=== PATIENT | female | born 1995 | race African-American/Black ===

== ENCOUNTER 2017-10-19 08:49 | Inpatient (IN) | payer OTHER ==
[2017-10-19] VITALS (7 sets, daily range): BP systolic 102–132; BP diastolic 41–63; PULSE 71–80; RESP 16–18; TEMP 97.5–98.5
[~2017-10-19] VITALS: Ht 162.6 cm; Wt 102.0 kg
[~2017-10-19 08:49] MED LIST: FERRTAB2 PO; Z.0.NO CURRENT MEDS
[2017-10-19] MEDS: LACTATED RINGER'S 1000 ML INJ 1,000 ML IV SCH ×3 (08:57→23:08)
[2017-10-19] MEDS ORDERED: LACTATED RINGER'S 1000 ML INJ 1,000 ML IV PRN (08:57)
[2017-10-19] MEDS ORDERED: SODIUM CHLORID 0.9% 500 ML INJ 500 ML IV PRN (09:00)
[2017-10-19] MEDS ORDERED: LIDOCAINE HCL 1% 50 ML VIAL I-DERMAL PRN (09:00)
[2017-10-19] MEDS ORDERED: MINERAL OIL 10 ML VIAL TOPICAL PRN (09:00)
[2017-10-19] MEDS ORDERED: OXYTOCIN 30 UNITS-500ML PREMIX 500 ML IV ONE (09:00)
[2017-10-19] MEDS ORDERED: ONDANSETRON HCL 4 MG/2 ML VIAL IV PUSH PRN (09:00)
[2017-10-19] MEDS ORDERED: LIDOCAINE HCL 1% 50 ML VIAL INFIL PRN (09:00)
[2017-10-19] MEDS ORDERED: CITRIC ACID-SODIUM CITRATE LIQ 30 ML UDC PO SCH (09:00)
[2017-10-19] MEDS ORDERED: SODIUM CHLOR 0.9% 1000 ML INJ 1,000 ML IV PRN (09:17)
--- NOTE | 2017-10-19 09:21 | HHI.HP ---
HPI Chief Complaint Scheduled Induction for Post-Dates Date Seen: Oct 19, 2017 Travel History International Travel<30 Days: No Contact w/Intl Traveler<30Days: No History of Present Illness HPI Ms. Novoa is a 21 y/o presenting at 41/2 weeks gestation for her scheduled induction. Per chart review, patient has had late care with the [facility]. She established in 09/08 and was found to be anemic and was then started on oral iron. Patient reported she had hepatitis C at that time, but labs showed she was currently antibody negative. Otherwise she reports no issues in . She endorses good movement and denies any vaginal bleeding, discharge, dysuria, or loss of fluid. She has no other complaints and denies any fevers, chills, SOB, chest pain, NVD, ABD pain or calf tenderness. Weeks Gestation: 41 Para: 1 : 2 History Past Medical History Narrative Medical Anemia Hepatitis C per patient, negative per labs Obstetric History Obstetric History Uncomplicated at full term Past Surgical History Surgical History: No Previous Surgery Family History Family History: Negative Social History Alcohol Use: No Tobacco Use: No Substance Abuse: No Allergies-Medications (Allergen,Severity, Reaction): Coded Allergies: No Known Allergies (Unverified Adverse Reaction, Unknown, 09/16/17) Home Meds Active Scripts Multi-Vit/Iron-Folic [id number] C (Ferralet) 90-1-0.012-120 mg Tab, 1 CAPLET PO BID for 30 Days, #60 CAPLET 2 Refills Prov:Deana Pacheco CNM [facility] 09/01/17 Multi-Vit/Iron-Folic [id number]-Sly C (Ferralet) 90-1-0.012-120 mg Tab, 1 CAPLET PO BID for 30 Days, #60 CAPLET 2 Refills Prov:Deana Pacheco CNM [facility] 08/29/17 Discontinued Reported Medications Miscellaneous (No Current Meds) Misc 11/25/12 Review of Systems Except as stated in HPI: all other systems reviewed are Neg (Per HPI) Physical Exam Narrative GENERAL: Well-nourished, well-developed patient. SKIN: Warm and dry. HEAD: Normocephalic and atraumatic. EYES: No scleral icterus. No injection or drainage. ENT: No nasal drainage noted. Mucous membranes pink. Airway patent. NECK: Supple, trachea midline. No JVD. CARDIOVASCULAR: Regular rate and rhythm without murmurs, gallops, or rubs. RESPIRATORY: Breath sounds equal bilaterally. No accessory muscle use. ABDOMEN/GI: Abdomen soft, non-tender, bowel sounds present, no rebound, no guarding Gravid to 41 weeks size GENITOURINARY: External Genitalia: intact and normal in appearance Cervix: Posterior Dilatation: 1-2cm Effacement: Thick Station: -3 Presentation: Vertex Membranes: Intact Uterine Contractions: None FHT's: Category: 1 Baseline: 120s Reactive: Positive Variability: Moderate Decels: None EXTREMITIES: No cyanosis or edema. BACK: Nontender without obvious deformity. No CVA tenderness. NEUROLOGICAL: Awake and alert. Motor and sensory grossly within normal limits. Five out of 5 muscle strength in all muscle groups. Normal speech. Caprini VTE Risk Assessment Caprini VTE Risk Assessment: Mod/High Risk (score >= 2) Caprini Risk Assessment Model Point Value = 1 Point Value = 2 Point Value = 3 Point Value = 5 Age 41-60 Minor surgery BMI > 25 kg/m2 Swollen legs Varicose veins or History of unexplained or recurrent spontaneous Oral contraceptives or hormone replacement Sepsis (< 1 month) Serious lung disease, including pneumonia (< 1 month) Abnormal pulmonary function Acute myocardial infarction Congestive heart failure (< 1 month) History of inflammatory bowel disease Medical patient at bed rest Age 61-74 Arthroscopic surgery Major open surgery (> 45 min) Laparoscopic surgery (> 45 min) Malignancy Confined to bed (> 72 hours) Immobilizing plaster cast Central venous access Age >= 75 History of VTE Family history of VTE Factor V Leiden Prothrombin [id number] Lupus anticoagulant Anticardiolipin antibodies Elevated serum homocysteine Heparin-induced thrombocytopenia Other congenital or acquired thrombophilia Stroke (< 1 month) Elective arthroplasty Hip, pelvis, or leg fracture Acute spinal cord injury (< 1 month) Prophylaxis Regimen Total Risk Factor Score Risk Level Prophylaxis Regimen 0-1 Low Early ambulation 2 Moderate Order ONE of the following: *Sequential Compression Device (SCD) *Heparin 5000 units SQ BID 3-4 Higher Order ONE of the following medications: *Heparin 5000 units SQ TID *Enoxaparin/Lovenox 40 mg SQ daily (WT < 150 kg, CrCl > 30 mL/min) *Enoxaparin/Lovenox 30 mg SQ daily (WT < 150 kg, CrCl > 10-29 mL/min) *Enoxaparin/Lovenox 30 mg SQ BID (WT < 150 kg, CrCl > 30 mL/min) AND/OR *Sequential Compression Device (SCD) 5 or more Highest Order ONE of the following medications: *Heparin 5000 units SQ TID (Preferred with Epidurals) *Enoxaparin/Lovenox 40 mg SQ daily (WT < 150 kg, CrCl > 30 mL/min) *Enoxaparin/Lovenox 30 mg SQ daily (WT < 150 kg, CrCl > 10-29 mL/min) *Enoxaparin/Lovenox 30 mg SQ BID (WT < 150 kg, CrCl > 30 mL/min) AND *Sequential Compression Device (SCD) Data Data Vital Signs Reviewed: Yes Orders Orders Admit To Inpatient (10/19/17 ) Code Status (10/19/17 08:57) Vital Signs (Adult) .Per protocol (10/19/17 08:57) Heart (10/19/17 08:57) Amnioinfusion (10/19/17 08:57) Urinary Catheter Management .ONCE (10/19/17 08:57) Lactated Ringer's 1000 Ml Inj (Lr 1000 M (10/19/17 08:57) Lactated Ringer's 1000 Ml Inj (Lr 1000 M (10/19/17 08:57) Sodium Chlorid 0.9% 500 Ml Inj (Ns 500 M (10/19/17 09:00) Sodium Chlor 0.9% 1000 Ml Inj (Ns 1000 M (10/19/17 09:17) Lidocaine 1% Inj (50 Ml) (Xylocaine 1% I (10/19/17 09:00) Citric Acid-Sodium Citrate Liq (Bicitra (10/19/17 09:00) Ondansetron Inj (Zofran Inj) (10/19/17 09:00) Fentanyl Inj (Fentanyl Inj) (10/19/17 09:00) Fentanyl Inj (Fentanyl Inj) (10/19/17 09:00) Complete Blood Count With Diff (10/19/17 08:57) Hold Clot (10/19/17 08:57) Abo/Rh Blood Type (10/19/17 08:57) Urinalysis - C+S If Indicated (10/19/17 08:57) Drug Screen, Random Urine (10/19/17 08:57) Ob/Psych Drug Screen, Urine (10/19/17 08:57) Resp Oxygen Non Rebreathe Mask (10/19/17 ) ^ Epidural / Intrathecal Infus (10/19/17 08:57) Oxytocin 30 Units-500ml Premix (Pitocin (10/19/17 09:00) Lidocaine 1% Inj (50 Ml) (Xylocaine 1% I (10/19/17 09:00) Light Mineral Oil (Muri-Lube Oil) (10/19/17 09:00) Group B Strep Pcr (Rapid) (10/19/17 08:57) Inpatient Certification (10/19/17 ) Specimen To Be Collected PRN (10/19/17 08:57) Specimen To Be Collected PRN (10/19/17 08:57) Group B Strep: Negative Assessment/Plan Problem List: (1) 41 weeks gestation of ICD Codes: Z3A.41 - 41 weeks gestation of Status: Acute Assessment and Plan Ms. Novoa is a 21 y/o at 41/2 weeks gestation presenting for her post- dates induction of labor. 1. IUP at 41 weeks gestation -Continue routine antepartum care -FHT category 1, reassuring -Orders placed for labor admission -Plan to start Cytotec for cervical ripening as cervix is currently closed. -Plan to reassess in 4 hours for possible additional dose vs. labor augmentation with Pitocin. 2. GBS status unknown -Negative per chart review 3. Anemia -Patient to continue with oral iron -Continue to monitor SDW: Dr. Jang Discharge Planning Pending clinical course Lion Page MD R2 Oct 19, 2017 09:21
[2017-10-19 10:29] LABS: AUTOMATED NEUTROPHIL # 5.3 TH/MM3 (1.8-7.7); BASOPHIL % 0.2 % (0.0-2.0); EOSINOPHIL # 0.2 TH/MM3 (0-0.4); EOSINOPHIL % 2.1 % (0.0-4.0); HEMATOCRIT 28.5 % (35.0-46.0); LYMPH % 19.5 % (9.0-44.0); LYMPHOCYTE # 1.5 TH/MM3 (1.0-4.8); MEAN CELL VOLUME 89.1 FL (80.0-100.0); MEAN CORPUSCULAR HEMOGLOBIN 31.2 PG (27.0-34.0); MEAN PLATELET VOLUME 9.3 FL (7.0-11.0); MONO % 8.3 % (0.0-8.0); MONOCYTE # 0.6 TH/MM3 (0-0.9); NEUT % 69.9 % (16.0-70.0); PLATELET COUNT 233 TH/MM3 (150-450); WHITE BLOOD COUNT 7.6 TH/MM3 (4.0-11.0)
[2017-10-19] MEDS ORDERED: MISOPROSTOL 25 MCG TAB PO ONE ×3 (10:30→19:30)
[2017-10-19 10:41] LABS: BACTERIA, URINE FEW /hpf; BILIRUBIN, URINE NEG (NEG); BLOOD, URINE NEG (NEG); GLUCOSE,URINE NEG (NEG); KETONE, URINE NEG (NEG); MUCUS URINE FEW /lpf (OCC); NITRITE,URINE NEG (NEG); PH, URINE 6.5 (5.0-8.5); SQUAMOUS EPITHELIAL CELL URINE 14 /hpf (0-5); URINE COLOR YELLOW (YELLW/STRAW); URINE LEUKOCYTE ESTERASE LARGE (NEG); WHITE BLOOD CELL CLUMPS RARE
[2017-10-19] MEDS: MULTIVITAMIN TAB PO SCH ×2 (10:42→21:17)
--- NOTE | 2017-10-19 15:21 | PD.LABORPN ---
Subjective Subjective Patient seen and examined. No current complaints and resting comfortably sleeping upon entering the room. Endorses good movement with no loss of fluid, bleeding, or dysuria. Objective Vital Signs Vital Signs Date Time Temp Pulse Resp B/P (MAP) Pulse Ox O2 Delivery O2 Flow Rate FiO2 10/19/17 13:07 16 10/19/17 13:05 98.5 80 102/55 (71) 10/19/17 09:05 75 132/41 (71) 10/19/17 09:04 97.5 18 Objective Pelvic Exam: Cervix: Posterior Dilatation: 3/4 Effacement: 60% Station: -2 Presentation: Vertex Membranes:Intact Uterine Contractions: Q5-6m FHT's: Category: 1 Baseline: Reactive: 130s Variability: Moderate Decels: None Weeks Gestation: 41 Assessment/Plan Problem List: (1) 41 weeks gestation of ICD Codes: Z3A.41 - 41 weeks gestation of Status: Acute Assessment and Plan Ms. Novoa is a 21 y/o at 41/2 weeks gestation presenting for her post- dates induction of labor. 1. IUP at 41 weeks gestation -Continue routine antepartum care -FHT category 1, reassuring -Orders placed for labor admission -Cytotec 25mgx1 complete without complications -As patient is still posterior with thickened cervix, Cytotec 25mg reordered x1 2. GBS status unknown -Negative per chart review 3. Anemia -Patient to continue with oral iron -Continue to monitor SDW: Dr. Suhail Page,Lion Escalante MD R2 Oct 19, 2017 15:21
--- NOTE | 2017-10-19 20:26 | PD.LABORPN ---
Subjective Subjective pt. in bed feeling some discomfort. pt. w/ some cervical dilation s/p cytotec 25mcg x 2 doses. +FM, no lof/vb Objective Vital Signs Vital Signs Date Time Temp Pulse Resp B/P (MAP) Pulse Ox O2 Delivery O2 Flow Rate FiO2 10/19/17 20:12 98.3 17 10/19/17 20:12 71 122/63 (82) 10/19/17 16:00 17 10/19/17 13:07 16 10/19/17 13:05 98.5 80 102/55 (71) Objective Pelvic Exam: Dilatation: 4 Effacement: 70 Station: high Presentation: cephalic Membranes:intact Uterine Contractions: 3-5 min FHT's: Category: 1 Reactive: + Variability: moderate Decels: 0 Weeks Gestation: 41 Assessment/Plan Problem List: (1) 41 weeks gestation of ICD Codes: Z3A.41 - 41 weeks gestation of Status: Acute Assessment and Plan pt. progressing well. will give another 25mcg of misoprostol. will continue to follow. Joshua Jang Jr., MD Oct 19, 2017 20:26
[2017-10-20] VITALS (30 sets, daily range): BP systolic 111–145; BP diastolic 60–94; PULSE 60–95; RESP 17–20; TEMP 98.1–98.5; O2SAT 100
[2017-10-20] MEDS ORDERED: fentaNYL 2MCG-BUPIV 0.125% 100 ML EPIDURAL SCH
[2017-10-20] MEDS ORDERED: NO SYSTEM NARCOTICS PRN
[2017-10-20] MEDS ORDERED: DO NOT ADMINISTER ANTICOAGULANTS PRN
[2017-10-20] MEDS ORDERED: fentaNYL 2MCG-BUPIV 0.125% INJ 100 ML ONE (00:07)
--- NOTE | 2017-10-20 00:10 | PD.LABORPN ---
Subjective Subjective pt. in bed. occasional cramping. s/p 3 doses 25mcg cytotec. +FM, no lof/vb. Objective Vital Signs Vital Signs Date Time Temp Pulse Resp B/P (MAP) Pulse Ox O2 Delivery O2 Flow Rate FiO2 10/19/17 20:12 98.3 17 10/19/17 20:12 71 122/63 (82) Objective Pelvic Exam: Dilatation: 4 Effacement: 70 Station: high Presentation: cephalic Membranes: Arom clear fluid Uterine Contractions: 3-5 min FHT's: Category: 1 Reactive: + Variability: mod Decels: none Weeks Gestation: 41 Medical induction of labor?: Yes Artificial rupture of membrane: Yes Artificial ROM date: Oct 20, 2017 Artifical ROM time: 00:09 Assessment/Plan Problem List: (1) 41 weeks gestation of ICD Codes: Z3A.41 - 41 weeks gestation of Status: Acute Assessment and Plan pt. s/p arom w/o diff. will continue to monitor. will reassess in 1 hour, and if no change will begin pitocin. Joshua Jang Jr., MD Oct 20, 2017 00:10
[2017-10-20] MEDS ORDERED: OXYTOCIN 30 UNITS/NS 500ML PREMIX IV PRN (01:00)
[2017-10-20] MEDS ORDERED: ePHEDrine/NS 25 MG/5 ML SYRINGE IV PUSH PRN (01:00)
[2017-10-20] MEDS ORDERED: diphenhydrAMINE HCL 50 MG/ML VIAL IV SCH (02:00)
--- NOTE | 2017-10-20 04:56 | PD.OB.DELI ---
Weeks gestation: 41 Gest age assessed time: 04:54 Pt started active labor?: Yes Medical induction of labor?: Yes Artificial rupture of membrane: Yes Artificial ROM date: Oct 20, 2017 Artifical ROM time: 00:09 Anesthesia: Epidural Episiotomy: None Vaginal Delivery: Normal Presentation: Occiput anterior, Compound Nuchal Cord: x1 Delayed cord clamping (45 sec): Yes Infant: Female Delivery date: Oct 20, 2017 Delivery time: 04:26 One Minute : 8 Five Minute : 9 Weight: pending Placenta: Manual removal Laceration: 1 deg Repair: Vicryl running Estimated blood loss: 600cc Joshua Jang Jr., MD Oct 20, 2017 04:56
[2017-10-20] MEDS ORDERED: ZOLPIDEM TARTRATE 5 MG TAB PO PRN (05:00)
[2017-10-20] MEDS ORDERED: ONDANSETRON ODT 4 MG TAB PO PRN (05:00)
[2017-10-20] MEDS ORDERED: ALUMINUM/MAGNESIUM/SIMETH 30 ML CUP PO PRN (05:00)
[2017-10-20] MEDS ORDERED: WITCH HAZEL 50%/GLYCERIN 12.5% 40 PAD JAR TOPICAL PRN (05:00)
[2017-10-20] MEDS ORDERED: OXYTOCIN 30 UNITS-500ML PREMIX 500 ML IV SCH (05:00)
[2017-10-20] MEDS ORDERED: SODIUM CHLORIDE 0.9% FLUSH 10 ML FLUSH IV FLUSH PRN (05:00)
[2017-10-20] MEDS ORDERED: ACETAMINOPHEN 325 MG TAB PO PRN (05:00)
[2017-10-20] MEDS ORDERED: DOCUSATE SODIUM 50 MG/SENNA 8.6 MG TAB PO PRN (05:00)
[2017-10-20] MEDS ORDERED: BENZOCAINE 20% TOPICAL SPRAY 60 ML CAN TOPICAL PRN (05:00)
[2017-10-20] MEDS: ceFAZolin 2 GM PREMIX 50 ML IV SCH ×2 (05:06→14:38)
[2017-10-20] MEDS: IBUPROFEN 800 MG TAB PO PRN ×2 (07:28→20:21)
[2017-10-20] MEDS: MULTIVITAMIN TAB PO SCH (09:00)
[2017-10-20] MEDS ORDERED: SODIUM CHLORIDE 0.9% FLUSH 10 ML FLUSH IV FLUSH SCH (09:00)
[2017-10-20] MEDS ORDERED: MEASLES, MUMPS, RUBELLA VACCINE 0.5 ML VIAL SQ ONE (16:00)
[2017-10-20] MEDS ORDERED: DIPHTH/TETANUS/ACEL PERTUSSIS (BOOSTER) 0.5 ML VIAL/PFS IM ONE (16:00)
[2017-10-21] MEDS: MULTIVITAMIN TAB PO SCH (00:33)
[2017-10-21] MEDS: LACTATED RINGER'S 1000 ML INJ 1,000 ML IV SCH (01:23)
[2017-10-21 07:50] LABS: HCV RNA PCR IU/ML LESS THAN 15 IU/mL (Not Detected)
[2017-10-21 07:57] VITALS: BP 128/67; PULSE 60; RESP 17; TEMP 98; O2SAT 100
--- NOTE | 2017-10-21 08:44 | HHI.OB ---
Subjective Post Day: 1 Remarks day #1 AFVSS overnight. Decreased lochia. Denies dysuria. No breast tenderness. She is feeding the baby via breast. Appetite good. No nausea or vomiting. Positive flatus/bowel movement. Ambulating well. Denies calf pain or shortness of breath. Otherwise, she is doing well this morning and has no other complaints. Objective Vitals/I&O Vital Signs Date Time Temp Pulse Resp B/P (MAP) Pulse Ox O2 Delivery O2 Flow Rate FiO2 10/21/17 07:57 128/67 (87) 10/21/17 07:57 98.0 60 17 100 10/20/17 20:00 90 145/82 (103) 10/20/17 20:00 98.1 17 Objective Remarks GENERAL: Well-nourished, well-developed patient. CARDIOVASCULAR: Regular rate and rhythm without murmurs, gallops, or rubs. RESPIRATORY: Breath sounds equal bilaterally. No accessory muscle use. ABDOMEN/GI: Abdomen soft, non-tender. Fundus: Firm, non-tender at umbilicus. GENITOURINARY: Light to moderate bleeding. EXTREMITIES: No cyanosis or edema, non-tender, without signs of DVT. Medications and IVs Current Medications Medications (Trade) Dose Ordered Sig/Geremias Route Start Time Stop Time Status Last Admin Lactated Ringer's 1,000 ml @ 125 mls/hr Q8H IV 10/19/17 08:57 10/19/17 23:08 Lactated Ringer's 1,000 ml @ 3,000 mls/hr Q20M PRN IV 10/19/17 08:57 Sodium Chloride 1,000 ml @ 100 mls/hr Q10H PRN IV 10/19/17 09:17 (Xylocaine 1% Inj (50 ml)) 0.1 ml UNSCH X1 PRN I-DERMAL 10/19/17 09:00 10/22/17 08:59 (Bicitra Liq) 30 ml ADJUNCT SOCIOLOGY PROFESSOR PO 10/19/17 09:00 10/23/17 08:59 (Zofran Inj) 4 mg Q6H PRN IV PUSH 10/19/17 09:00 (fentaNYL INJ) 50 mcg Q1H PRN IV PUSH 10/19/17 09:00 (fentaNYL INJ) 100 mcg Q1H PRN IV PUSH 10/19/17 09:00 (Xylocaine 1% Inj (50 ml)) 10 ml UNSCH X1 PRN INFIL 10/19/17 09:00 10/21/17 08:59 (Muri-Lube Oil) 10 ml UNSCH PRN TOPICAL 10/19/17 09:00 (Theragran) 1 tab BID PO 10/19/17 10:30 10/21/17 00:33 Oxytocin 500 ml @ 0 mls/hr TITRATE PRN IV 10/20/17 01:00 Fentanyl/ Bupivacaine HCl 100 ml @ 12 mls/hr TITRATE EPIDURAL 10/20/17 00:00 10/20/17 01:07 (NS Flush) 2 ml BID IV FLUSH 10/20/17 09:00 (NS Flush) 2 ml UNSCH PRN IV FLUSH 10/20/17 05:00 (Tylenol) 650 mg Q4H PRN PO 10/20/17 05:00 (Motrin) 800 mg Q8H PRN PO 10/20/17 05:00 10/20/17 20:21 (Americaine 20% Top Spr) 1 spray Q4H PRN TOPICAL 10/20/17 05:00 10/20/17 14:38 (Tucks Pads) 1 applic QID PRN TOPICAL 10/20/17 05:00 10/20/17 14:38 (Ambika-Colace) 2 tab Q12H PRN PO 10/20/17 05:00 (Ambien) 5 mg HS PRN PO 10/20/17 05:00 (Mag-Al Plus Susp Liq) 15 ml Q8H PRN PO 10/20/17 05:00 (Zofran Odt) 4 mg Q6H PRN PO 10/20/17 05:00 Assessment/Plan Problem List: (1) 41 weeks gestation of ICD Codes: Z3A.41 - 41 weeks gestation of Status: Acute Assessment and Plan 21y/o female who is PPD#1 s/p . -Continue routine care. -Motrin PRN pain. -Encouraged OOB. Advised pelvic rest for 6 wks. -Re: ctrl, she would like to speak with her outpatient OB regarding control. -D/c likely today. ALEXIS Ross Discharge Planning Pending clinical course Mc Lamb MD R1 Oct 21, 2017 08:44
[2017-10-21] MEDS ORDERED: IBUP1TAB7 PO (09:32)
[2017-10-21] MEDS ORDERED: PERI PO (09:32)
--- NOTE | 2017-10-21 09:32 | HHI.DCPOC ---
Discharge Care Plan Diagnosis: (1) Vaginal delivery Report Symptoms to Your Doctor -Temperature above 100.5 degrees -Redness, of incision or excessive or foul smelling drainage -Unusual pain or calf pain -Increased vaginal bleeding -Painful or difficulty urinating -Feelings of extreme sadness or anxiety after 2 weeks Goals to Promote Your Health * To prevent worsening of your condition and complications * To maintain your health at the optimal level Directions to Meet Your Goals Take your medications as prescribed Follow your dietary instruction Follow activity as directed Ensure plenty of rest for recovery Drink fluids for hydration Keep your appointments as scheduled Take your immunizations and boosters as scheduled If your symptoms worsen call your PCP, if no PCP go to Urgent Care Center or Emergency Room Smoking is Dangerous to Your Health. Avoid second hand smoke Call the 24-hour crisis hotline for domestic abuse at Mc Lamb MD R1 Oct 21, 2017 09:32
[2017-10-21] MEDS ORDERED: INFLUENZA VIRUS VACCINE (QUADRIVALENT) 0.5 ML SYR IM ONE (10:00)
== END 2017-10-21 12:24 | disposition home or self-care (01) | DRG 767 ==
LOC: H2EB 08:49 → H1EA 10-20 07:47
PROVIDERS: ADMIT Obstetrics & Gynecology Maternal & Fetal Medicine; ATTEND Obstetrics & Gynecology Maternal & Fetal Medicine
PROC: 3E0P7VZ Introduction of Hormone into Female Reproductive, Via Natural or Artificial Opening (ICD-10-PCS; 2017-10-19)
PROC: 10907ZC Drainage of Amniotic Fluid, Therapeutic from Products of Conception, Via Natural or Artificial Opening (ICD-10-PCS; 2017-10-19)
PROC: 10E0XZZ Delivery of Products of Conception, External Approach (ICD-10-PCS; principal; 2017-10-20)
PROC: 10D17Z9 Manual Extraction of Products of Conception, Retained, Via Natural or Artificial Opening (ICD-10-PCS; 2017-10-20)
PROC: 0HQ9XZZ Repair Perineum Skin, External Approach (ICD-10-PCS; 2017-10-20)
DX: O48.0 Post-term pregnancy (principal); D64.9 Anemia, unspecified; Z37.0 Single live birth; Z23 Encounter for immunization; Z3A.41 41 weeks gestation of pregnancy; O99.02 Anemia complicating childbirth; O69.81X0 Labor and delivery complicated by cord around neck, without compression, not applicable or unspecified; O70.0 First degree perineal laceration during delivery
CPT/HCPCS: 59025; 80307; 81001; 85025; 86900; 86901; 87086; 87522; 90686; 90715; J0690; J7120; Q2038

== ENCOUNTER 2017-10-29 02:19 | Emergency (ER) | payer OTHER ==
[~2017-10-29] VITALS: Ht 165.1 cm; Wt 100.0 kg
[~2017-10-29 02:19] MED LIST changes: +IBUP1TAB7 PO; +PERI PO; -Z.0.NO CURRENT MEDS
[2017-10-29 02:36] VITALS: BP 135/70; PULSE 90; RESP 16; TEMP 99.2; O2SAT 100
[2017-10-29 02:43] VITALS: BP 132/73; PULSE 86; RESP 16; O2SAT 96
[2017-10-29 02:56] LABS: AUTOMATED NEUTROPHIL # 6.2 TH/MM3 (1.8-7.7); BASOPHIL % 0.4 % (0.0-2.0); EOSINOPHIL # 0.2 TH/MM3 (0-0.4); EOSINOPHIL % 2.5 % (0.0-4.0); HEMATOCRIT 32.4 % (35.0-46.0); LYMPH % 25.2 % (9.0-44.0); LYMPHOCYTE # 2.4 TH/MM3 (1.0-4.8); MEAN CORPUSCULAR HEMOGLOBIN 30.1 PG (27.0-34.0); MEAN CORPUSCULAR HGB CONC 33.8 % (32.0-36.0); MEAN PLATELET VOLUME 8.1 FL (7.0-11.0); MONOCYTE # 0.7 TH/MM3 (0-0.9); NEUT % 64.9 % (16.0-70.0); PLATELET COUNT 402 TH/MM3 (150-450); RED BLOOD COUNT 3.64 MIL/MM3 (4.00-5.30); RED CELL DISTRIBUTION WIDTH 16.1 % (11.6-17.2); WHITE BLOOD COUNT 9.5 TH/MM3 (4.0-11.0)
[2017-10-29 03:10] LABS: CALCIUM 8.3 MG/DL (8.5-10.1); CREATININE 0.66 MG/DL (0.50-1.00)
[2017-10-29] MEDS ORDERED: SODIUM CHLOR 0.9% 1000 ML INJ 1,000 ML IV ONE (03:30)
[2017-10-29] MEDS ORDERED: MISOPROSTOL 200 MCG TAB PO ONE (03:45)
--- NOTE | 2017-10-29 03:46 | PD ---
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 She complains of abdominal cramping pains. She denies any fevers or other issues. Modifying Factors: None Associated Signs & Symptoms: Heavy vaginal bleeding Risk Factors: Status post vaginal delivery 10 days ago PFS Past Medical History Medical History: Denies Significant Hx Diminished Hearing: No Tetanus Vaccination: < 5 Years Influenza Vaccination: Yes ?: Not : 0 Past Surgical History Surgical History: No Previous Surgery Social History Alcohol Use: No Tobacco Use: No Substance Use: No Allergies-Medications (Allergen,Severity, Reaction): Coded Allergies: No Known Allergies (Unverified Adverse Reaction, Unknown, 09/16/17) Reported Meds & Prescriptions Reported Meds & Active Scripts Active Ibuprofen 800 Mg Tab 800 Mg PO Q8H PRN Ferralet (Multi-Vit/Iron-Folic [id number]-Ohe C) 90-1-0.012-120 mg Tab 1 Caplet PO BID 30 Days Review of Systems Except as stated in HPI: all other systems reviewed are Neg Physical Exam Narrative GENERAL: Young -[place] female patient currently in mild distress. Awake and oriented 3. SKIN: Focused skin assessment warm/dry. HEAD: Atraumatic. Normocephalic. EYES: Pupils equal and round. No scleral icterus. No injection or drainage. ENT: No nasal bleeding or discharge. Mucous membranes pink and moist. NECK: Trachea midline. No JVD. CARDIOVASCULAR: Regular rate and rhythm. No murmur appreciated. RESPIRATORY: No accessory muscle use. Clear to auscultation. Breath sounds equal bilaterally. GASTROINTESTINAL: Abdomen soft, non-tender, nondistended. Hepatic and splenic margins not palpable. GENITOURINARY: Normal external genitalia without lesions or erythema. Vaginal vault with large amount of red blood and blood clots. Cervical os was open. No cervical motion tenderness. Uterus nontender . Bilateral adnexa nontender without masses MUSCULOSKELETAL: No obvious deformities. No clubbing. No cyanosis. No edema. NEUROLOGICAL: Awake and alert. No obvious cranial nerve deficits. Motor grossly within normal limits. Normal speech. PSYCHIATRIC: Appropriate mood and affect; insight and judgment normal. Data Data Last Documented VS Vital Signs Date Time Temp Pulse Resp B/P (MAP) Pulse Ox O2 Delivery O2 Flow Rate FiO2 10/29/17 02:43 86 16 132/73 (92) 96 Room Air 10/29/17 02:36 99.2 Orders Orders Complete Blood Count With Diff (10/29/17 02:40) Basic Metabolic Panel (Bmp) (10/29/17 02:40) Type And Screen (10/29/17 02:40) Sodium Chlor 0.9% 1000 Ml Inj (Ns 1000 M (10/29/17 03:30) Us Pelvis Comp Tank Car Mechanic/Non-Preg (10/29/17 03:31) Misoprostol (Cytotec) (10/29/17 03:45) Morphine Inj (Morphine Inj) (10/29/17 04:30) Ondansetron Inj (Zofran Inj) (10/29/17 04:30) Methylergonovine Inj (Methergine Inj) (10/29/17 05:00) Ed Discharge Order (10/29/17 05:57) Labs Laboratory Tests Test 10/29/17 02:45 White Blood Count 9.5 TH/MM3 Red Blood Count 3.64 MIL/MM3 Hemoglobin 11.0 GM/DL Hematocrit 32.4 % Mean Corpuscular Volume 89.0 FL Mean Corpuscular Hemoglobin 30.1 PG Mean Corpuscular Hemoglobin Concent 33.8 % Red Cell Distribution Width 16.1 % Platelet Count 402 TH/MM3 Mean Platelet Volume 8.1 FL Neutrophils (%) (Auto) 64.9 % Lymphocytes (%) (Auto) 25.2 % Monocytes (%) (Auto) 7.0 % Eosinophils (%) (Auto) 2.5 % Basophils (%) (Auto) 0.4 % Neutrophils # (Auto) 6.2 TH/MM3 Lymphocytes # (Auto) 2.4 TH/MM3 Monocytes # (Auto) 0.7 TH/MM3 Eosinophils # (Auto) 0.2 TH/MM3 Basophils # (Auto) 0.0 TH/MM3 CBC Comment DIFF FINAL Differential Comment Blood Urea Nitrogen 11 MG/DL Creatinine 0.66 MG/DL Random Glucose 91 MG/DL Calcium Level 8.3 MG/DL Sodium Level 140 MEQ/L Potassium Level 4.1 MEQ/L Chloride Level 110 MEQ/L Carbon Dioxide Level 25.0 MEQ/L Anion Gap 5 MEQ/L Estimat Glomerular Filtration Rate 134 ML/MIN MDM Medical Decision Making Medical Screen Exam Complete: Yes Emergency Medical Condition: Yes Medical Record Reviewed: Yes Interpretation(s) Laboratory Tests Test 10/29/17 02:45 Red Blood Count 3.64 MIL/MM3 (4.00-5.30) Hemoglobin 11.0 GM/DL (11.6-15.3) Hematocrit 32.4 % (35.0-46.0) Calcium Level 8.3 MG/DL (8.5-10.1) Chloride Level 110 MEQ/L (98-107) Last 24 hours Impressions Pelvis Ultrasound 10/29/17 0331 Signed Impressions: Service Date/Time: Sunday, October 29, 2017 03:53 - CONCLUSION: Enlarged post gravid uterus with endometrial thickening but no discrete retained products. Normal ovaries. Bereket Jolley MD Differential Diagnosis vaginal bleeding: Retained products versus uterine atony versus normal bleeding Narrative Course After pelvic was done, the case was discussed with OB ER physician, Dr. Tang , on service and he states that he would like me to do Cytotec 600 p.o. and ultrasound for evaluation of the uterus. An ultrasound shows no signs of retained products of conception. He also suggests Methergine 0.2 IM. He states that he would release the patient at this point and have her follow-up with TELEPHONIC RN within a day or 2. She should return for any worsening of bleeding or new issues. The plan has been discussed with her and she states understanding. Diagnosis Primary Impression: bleeding Additional Instructions: Follow-up on Tuesday with her TELEPHONIC RN. Return for any worsening in pain, bleeding , and as needed. Disposition: DISCHARGE HOME Condition: Stable Patricia Mas MD Oct 29, 2017 03:46
--- NOTE | 2017-10-29 04:22 | RADRPT ---
EXAM DATE/TIME: 10/29/2017 03:53 [facility] COMPARISON: No previous studies available for comparison. INDICATIONS : Bleeding. MEDICAL HISTORY : None. SURGICAL HISTORY : None. ENCOUNTER: Initial ACUITY: 1 week PAIN SCORE: 3/10 LOCATION: Bilateral pelvis MEASUREMENTS: UTERUS: 18.0 x 9.5 x 8.8 cm ENDOMETRIAL STRIPE: >20 mm RIGHT OVARY: 3.1 x 2.4 x 1.2 cm LEFT OVARY: 3.1 x 2.6 x 2.1 cm FINDINGS: UTERUS: Enlarged and heterogeneous. Thickened endometrium without a well-defined/measurable focal mass. No si gnificant fluid in the cavity. RIGHT OVARY: Ovary contains no mass or significant cystic lesion. LEFT OVARY: Ovary contains no mass or significant cystic lesion. MISCELLANEOUS: No free fluid. CONCLUSION: Enlarged post gravid uterus with endometrial thickening but no discrete retained products. Normal ova lay. Bereket Jolley MD on October 29, 2017 at 4:19 Board Certified Radiologist. This report was verified electronically.
[2017-10-29] MEDS ORDERED: MORPHINE SULFATE 2 MG/ML INJ IV PUSH ONE (04:30)
[2017-10-29] MEDS ORDERED: ONDANSETRON HCL 4 MG/2 ML VIAL IV PUSH ONE (04:30)
[2017-10-29] MEDS ORDERED: METHYLERGONOVINE MALEATE 0.2 MG/ML VIAL IM ONE (05:00)
== END 2017-10-29 06:32 | disposition home or self-care (01) ==
LOC: NEPE 02:19
DX: O72.1 Other immediate postpartum hemorrhage (principal)
CPT/HCPCS: 76856; 80048; 85025; 86850; 86900; 86901; 96361; 96372; 96374; 96375; 99284; J2210; J2270; J2405; J7030